=== PATIENT | male | born 1985 | race Caucasian/White ===

== ENCOUNTER 2021-10-15 21:12 | Inpatient (IN) | payer MEDICAID, SELFPAY ==
--- NOTE | ~2021-10-15 | XR_ITS ---
EXAMINATION: XR CHEST CLINICAL INFORMATION: Fever COMPARISON: 01/30/2018 TECHNIQUE: Frontal view of the chest was obtained. FINDINGS: Lung volumes are symmetric. No definite consolidation is seen. There is suggestion of mildly thick-walled central airways. No evidence of pneumothorax, pleural effusion, or pulmonary edema. The cardiomediastinal contour is unremarkable. No acute osseous findings are seen. XR/XR chest 1V IMPRESSION: Suggestion of mildly thick-walled central airways which may reflect bronchitis. No definite consolidation.
--- NOTE | ~2021-10-15 | CT_ITS ---
EXAMINATION: CT ABDOMEN AND PELVIS WITH CONTRAST CLINICAL INFORMATION: Diffuse abdominal pain COMPARISON: 01/30/2018 TECHNIQUE: Multidetector volumetric images were obtained from the superior aspect of the liver through the pubic symphysis following administration 85 mL of Omnipaque 350 intravenous contrast. Sagittal and coronal reformatted images were obtained on the technologist's workstation. Oral contrast: No This CT examination was performed using dose optimization techniques as appropriate, variously including the following: *Automated exposure control *Adjustment of mA and/or kV according to patient size (this includes techniques or standardized protocols for targeted exams where dose is matched to indication/reason for exam; i.e. extremities or head) *Use of iterative reconstruction technique DLP: 569 mGy-cm FINDINGS: LUNG BASES: The visualized lung bases are unremarkable. LIVER, GALLBLADDER, AND BILIARY TREE: The liver is normal in size, shape, and attenuation. There is suggestion of mild focal steatosis near the gallbladder fossa. No biliary ductal dilatation is present. The gallbladder is unremarkable with no evidence of radiopaque gallstones, gallbladder wall thickening, or obvious pericholecystic inflammatory changes. PANCREAS: There is moderate stranding near the distal pancreas along with a small amount of fluid, most suspicious for pancreatitis. No discrete fluid collection is seen. No definite parenchymal necrosis. SPLEEN: Unremarkable. ADRENAL GLANDS: Unremarkable. KIDNEYS AND URETERS: The right kidney may be severely atrophic or absent. No hydronephrosis or obstructing calculus of the left kidney/ureter. BLADDER: There is diffuse mural prominence which may be due to underdistention. GASTROINTESTINAL TRACT: The small and large bowel are unremarkable. The appendix is unremarkable. No free fluid or free air is seen. ABDOMINAL WALL: No significant hernia is appreciated. LYMPH NODES: Normal. VASCULAR: Unremarkable. PELVIC VISCERA: Unremarkable. Trace free fluid noted in the pelvis. OSSEOUS STRUCTURES: There are mild degenerative changes of the lower thoracic spine. CT/CT abdomen pelvis w con IMPRESSION: Moderate stranding adjacent to the distal pancreas consistent with pancreatitis.
[2021-10-15 22:49] VITALS: BP 151/96; PULSE 110; RESP 18; TEMP 37.1; O2SAT 95; BMI 28.3
--- NOTE | 2021-10-15 23:01 | ED_ITS ---
HPI - Abdominal Pain General Chief Complaint: Abdominal Pain Stated Complaint: Abdominal pain Time Seen by Provider: 10/15/21 22:34 Source: patient Mode of arrival: ambulatory Limitations: no limitations History of Present Illness HPI narrative: Patient comes emergency room complaining of diffuse abdominal pain since 1 in the morning, close to 22 hours now. Patient states it started hurting in the left lower quadrant but by the morning it became diffuse abdominal pain. Patient denies nausea vomiting, no diarrhea, no fever chills, states that he has occasional dysuria, no hematuria. Related Data Home Medications Medication Instructions Recorded Confirmed No Known Home Meds 10/16/21 10/16/21 Allergies Allergy/AdvReac Type Severity Reaction Status Date / Time lisinopril Allergy Unknown Hyperkalemi Verified 04/09/20 00:00 a Review of Systems Review of Systems Constitutional : No Weight loss, No Fever, No Chills, No Night Sweats, No Fatigue, No Malaise ENT/Mouth : No Hearing loss, No Ear Pain, No Nasal Congestion, No Sinus Pain, No Hoarseness, No sore throat, No Rhinorrhea, No Swallowing Difficulty Eyes: No Eye Pain, No Swelling, No Redness, No Foreign Body, No Discharge, No Vision Changes Cardiovascular : No Chest Pain, No SOB, No Dyspnea on Exertion, No Orthopnea, No Edema, No Palpitations Respiratory : No Cough, No Sputum, No Wheezing, No Smoke Exposure, No Dyspnea Gastrointestinal : No Nausea, No Vomiting, No Diarrhea, No Constipation, complaining of diffuse abdominal pain, started in the left lower quadrant. No Hematochezia, No Melena Genitourinary : no irregular bleeding, No Dysuria, No Urinary Frequency, No Hematuria, No Urinary Incontinence, No Urgency, No Flank Pain, No Urinary Flow Changes, No Hesitancy Musculoskeletal : No joint pain, No Myalgias, No Joint Swelling Skin : No Skin Lesions, No rash Neuro : No Weakness, No Numbness, No Paresthesias, No Loss of Consciousness, No Dizziness, No Headache Psych : No Anxiety/Panic, No Depression, No SI/HI/AH/VH, No Social Issues, Heme/Lymph: No Bruising, No Bleeding,No Lymphadenopathy Endocrine : No Polyuria, No Polydipsia, No Temperature Intolerance Physical Exam Vital Signs: Vital Signs: Last Vital Signs Temp 100.6 F H 10/16/21 00:38 Pulse 101 H 10/16/21 00:38 Resp 16 10/16/21 02:19 BP 148/102 H 10/16/21 00:38 Pulse Ox 96 10/16/21 00:38 Body Mass Index 28.3 Const: Other: Appearance: Alert. Oriented X3. No acute distress. Eyes: Pupils equal, round and reactive to light. ENT: Pharynx normal. Neck: Normal inspection. Neck supple. No lymph nodes noted. No crepitus CVS: Normal heart rate and rhythm. Pulses normal. Normal S1 and S2 Respiratory: No respiratory distress. Breath sounds normal. No Wheezing. No rales Abdomen: Soft , mild tenderness to palpation diffusely. No guarding, no rebound No rigidity. No distention. Skin: Skin warm and dry. Normal skin color. Normal skin turgor. Extremities: No lower extremity edema. No lower extremity edema. No Lacerations. No Rash Neuro: Oriented X 3. No motor deficit. No sensory deficit. Moving all extermities. No slurred speech. Course Course Course Narrative: Denies heavy alcohol drinking, triglyceride levels pending. Patient's pain likely secondary to pancreatitis. Obtain nonfasting triglycerides. Triglyceride levels are above 3000. Patient will need to be started on an insulin drip and 5 % dextrose and lactated Ringer's IV fluids MDM - Abdominal Pain Lab Data Result diagrams: 10/15/21 23:19 10/15/21 23:19 Labs: Lab Results 10/15/21 10/15/21 10/16/21 Range/Units 23:19 23:19 01:03 WBC 16.5 H (4.8-10.8) X10*3/uL RBC 5.87 H (4.60-5.80) X10*6/uL Hgb 18.6 H (14.0-18.0) g/dl Hct 51.5 (42.0-52.0) % MCV 87.7 (80.0-98.0) fL MCH 31.7 (27.0-33.0) pg MCHC 36.1 H (31.0-36.0) g/dl RDW 11.5 (11.0-16.0) % Plt Count 164 (160-400) X10*3/uL MPV 10.5 (9.4-12.4) fL Immature Gran % (Auto) 0.5 H (0.0-0.4) % Neut % (Auto) 79.6 H (45-73) % Lymph % (Auto) 11.2 L (20-40) % [place] % (Auto) 7.8 (2-11) % Eos % (Auto) 0.7 (0-4) % Baso % (Auto) 0.2 (0-2) % Lymph # (Auto) 1.8 (1.2-4.9) X10*3/uL [place] # (Auto) 1.3 H (0.1-1.2) X10*3/uL Eos # (Auto) 0.1 (0.0-0.4) X10*3/uL Baso # (Auto) 0.0 (0.0-0.2) X10*3/uL Abs Immat Gran (auto) 0.08 H (0.00-0.03) X10*3/uL Absolute Neuts (auto) 13.1 H (2.0-8.3) x10*3/uL Absolute Nucleated RBC 0.000 (0.0-0.012) X10*3/uL Nucleated RBC % (auto) 0.0 (0.0-0.2) /100WBC Sodium 132 L (135-145) mmol/L Potassium 4.1 (3.3-5.1) mmol/L Chloride 95 L (96-108) mmol/L Carbon Dioxide 22 (22-29) mmol/L Anion Gap 19 (12-20) BUN 15 (9-16) mg/dL Creatinine 1.88 H (0.5-1.4) mg/dL Estim Creat Clear Calc 55.6 Estimated GFR 41 Random Glucose 279 H (60-115) mg/dL Calcium 9.3 (8.4-10.2) mg/dL Total Bilirubin 0.8 (0.0-1.0) mg/dL Direct Bilirubin 0.2 (0.0-0.5) mg/dL AST 15 (5-37) U/L ALT 22 (0-40) U/L Alkaline Phosphatase 107 (39-117) U/L Total Protein 8.3 H (6.5-8.0) g/dL Albumin 3.9 (3.5-5.0) g/dL Triglycerides 3217 mg/dL Lipase 82 H (8-78) U/L Urine Color Urine Appearance Urine pH (5.0-8.0) Ur Specific [place] (1.005-1.025) Urine Protein (NEG-TRACE) MG/DL Urine Glucose (UA) (NEG) MG/DL Urine Ketones (NEG) MG/DL Urine Blood (NEG) Urine Nitrite (NEG) Ur Leukocyte Esterase (NEG) Urine RBC (0) /HPF Urine WBC (0-4) /HPF Ur Squamous Epith Cells /LPF Urine Bacteria /LPF Hyaline Casts /LPF Granular Casts /LPF Urine Mucus /LPF COVID-19 (APRYL) Negative (Negative) COVID-19 Clin Com See Note 10/16/21 Range/Units 01:03 WBC (4.8-10.8) X10*3/uL RBC (4.60-5.80) X10*6/uL Hgb (14.0-18.0) g/dl Hct (42.0-52.0) % MCV (80.0-98.0) fL MCH (27.0-33.0) pg MCHC (31.0-36.0) g/dl RDW (11.0-16.0) % Plt Count (160-400) X10*3/uL MPV (9.4-12.4) fL Immature Gran % (Auto) (0.0-0.4) % Neut % (Auto) (45-73) % Lymph % (Auto) (20-40) % [place] % (Auto) (2-11) % Eos % (Auto) (0-4) % Baso % (Auto) (0-2) % Lymph # (Auto) (1.2-4.9) X10*3/uL [place] # (Auto) (0.1-1.2) X10*3/uL Eos # (Auto) (0.0-0.4) X10*3/uL Baso # (Auto) (0.0-0.2) X10*3/uL Abs Immat Gran (auto) (0.00-0.03) X10*3/uL Absolute Neuts (auto) (2.0-8.3) x10*3/uL Absolute Nucleated RBC (0.0-0.012) X10*3/uL Nucleated RBC % (auto) (0.0-0.2) /100WBC Sodium (135-145) mmol/L Potassium (3.3-5.1) mmol/L Chloride (96-108) mmol/L Carbon Dioxide (22-29) mmol/L Anion Gap (12-20) BUN (9-16) mg/dL Creatinine (0.5-1.4) mg/dL Estim Creat Clear Calc Estimated GFR Random Glucose (60-115) mg/dL Calcium (8.4-10.2) mg/dL Total Bilirubin (0.0-1.0) mg/dL Direct Bilirubin (0.0-0.5) mg/dL AST (5-37) U/L ALT (0-40) U/L Alkaline Phosphatase (39-117) U/L Total Protein (6.5-8.0) g/dL Albumin (3.5-5.0) g/dL Triglycerides mg/dL Lipase (8-78) U/L Urine Color YELLOW Urine Appearance CLEAR Urine pH 6.0 (5.0-8.0) Ur Specific [place] 1.020 (1.005-1.025) Urine Protein 3+ H (NEG-TRACE) MG/DL Urine Glucose (UA) >=1000 H (NEG) MG/DL Urine Ketones 5 (NEG) MG/DL Urine Blood 1+ H (NEG) Urine Nitrite NEG (NEG) Ur Leukocyte Esterase NEG (NEG) Urine RBC 1-4 (0) /HPF Urine WBC 1-4 (0-4) /HPF Ur Squamous Epith Cells TRACE /LPF Urine Bacteria NONE /LPF Hyaline Casts 0-2 /LPF Granular Casts 0-2 /LPF Urine Mucus 1+ /LPF COVID-19 (APRYL) (Negative) COVID-19 Clin Com Imaging Data CT scan - abdomen: Radiologist's impression: FINDINGS: LUNG BASES: The visualized lung bases are unremarkable.? LIVER, GALLBLADDER, AND BILIARY TREE: The liver is normal in size, shape, and attenuation. There is suggestion of mild focal steatosis near the gallbladder fossa. No biliary ductal dilatation is present. The gallbladder is unremarkable with no evidence of radiopaque gallstones, gallbladder wall thickening, or obvious pericholecystic inflammatory changes.? PANCREAS: There is moderate stranding near the distal pancreas along with a small amount of fluid, most suspicious for pancreatitis. No discrete fluid collection is seen. No definite parenchymal necrosis.? SPLEEN: Unremarkable.? ADRENAL GLANDS: Unremarkable.? KIDNEYS AND URETERS: The right kidney may be severely atrophic or absent. No hydronephrosis or obstructing calculus of the left kidney/ureter.? BLADDER: There is diffuse mural prominence which may be due to underdistention.? GASTROINTESTINAL TRACT: The small and large bowel are unremarkable. The appendix is unremarkable. No free fluid or free air is seen. ABDOMINAL WALL: No significant hernia is appreciated.? LYMPH NODES: Normal. VASCULAR: Unremarkable. PELVIC VISCERA: Unremarkable. Trace free fluid noted in the pelvis. OSSEOUS STRUCTURES: There are mild degenerative changes of the lower thoracic spine.? CT/CT abdomen pelvis w con IMPRESSION: Moderate stranding adjacent to the distal pancreas consistent with pancreatitis. Critical Care Time Critical Care Time Critical Care Time: Yes Total Critical Care Time: 45 Attestation: 45 minutes were spent in direct patient care and stabilization. Discharge Plan Discharge Clinical Impression: Pancreatitis Patient Disposition: Admitted As Inpatient [facility] Past Medical History Medical History Diabetes Social History Social History Advance Directives: No Advance Directives Information Provided: No
[2021-10-15 23:23] LABS: MANUAL DIFF FLAG NO
[2021-10-15 23:25] LABS: Basophils Percent Auto 0.2 % (0-2); Eosinophils Absolute Auto 0.1 X10*3/uL (0.0-0.4); Eosinophils Percent Auto 0.7 % (0-4); Hematocrit 51.5 % (42.0-52.0); Hemoglobin 18.6 g/dl (14.0-18.0); Imm Gran Abs Auto 0.08 X10*3/uL (0.00-0.03); Imm Gran Pct Auto 0.5 % (0.0-0.4); Lymphocytes Absolute Auto 1.8 X10*3/uL (1.2-4.9); Lymphocytes Percent Auto 11.2 % (20-40); Mean Corpuscular HGB Conc 36.1 g/dl (31.0-36.0); Mean Corpuscular Hemoglobin 31.7 pg (27.0-33.0); Mean Corpuscular Volume 87.7 fL (80.0-98.0); Mean Platelet Volume 10.5 fL (9.4-12.4); Monocytes Absolute Auto 1.3 X10*3/uL (0.1-1.2); Monocytes Percent Auto 7.8 % (2-11); Neutrophils Absolute Auto 13.1 x10*3/uL (2.0-8.3); Neutrophils Percent Auto 79.6 % (45-73); Platelet Count 164 X10*3/uL (160-400); Red Blood Count 5.87 X10*6/uL (4.60-5.80); Red Cell Distribution Width 11.5 % (11.0-16.0); White Blood Count 16.5 X10*3/uL (4.8-10.8)
[2021-10-15 23:51] LABS: Lipase 82 U/L (8-78)
[2021-10-16] VITALS (23 sets, daily range): BP systolic 117–162; BP diastolic 70–115; PULSE 83–113; RESP 15–23; TEMP 37.1–38.7; O2SAT 93–98; BMI 27.8
[2021-10-16] MEDS: 0.9 % Sodium Chloride 1,000 ML 999 ML IVCONT ×2 (00:18→00:59)
[2021-10-16 00:32] LABS: Alanine Aminotransferase 22 U/L (0-40); Albumin Level 3.9 g/dL (3.5-5.0); Alkaline Phosphatase 107 U/L (39-117); Anion Gap 19 (12-20); Aspartate Amino Transferase 15 U/L (5-37); Bilirubin Direct 0.2 mg/dL (0.0-0.5); Bilirubin Total 0.8 mg/dL (0.0-1.0); Blood Urea Nitrogen 15 mg/dL (9-16); Calcium 9.3 mg/dL (8.4-10.2); Carbon Dioxide 22 mmol/L (22-29); Chloride 95 mmol/L (96-108); Creatinine Clr Calc Pharmacy 55.6; Estimated Glomerular Filt Rate 41; Glucose Random 279 mg/dL (60-115); Potassium 4.1 mmol/L (3.3-5.1); Sodium 132 mmol/L (135-145); Total Protein 8.3 g/dL (6.5-8.0)
[2021-10-16] MEDS: iohexoL 300 MG/ML 100 ML INFUS..BTL 85 ML IV (00:49)
[2021-10-16] MEDS: Acetaminophen 325 MG TABLET 650 MG PO (00:59)
[2021-10-16 01:24] LABS: Appearance Urine CLEAR; COVID-19 Test Negative (Negative); Color Urine YELLOW; Glucose Urine UA >=1000 MG/DL (NEG); IDNOW Serial# 9DD0AD1C; Leukocyte Esterase Urine NEG (NEG); Nitrite Urine NEG (NEG); UACC Culture Trigger NO; Urine Blood 1+ (NEG); Urine Ketones 5 MG/DL (NEG); Urine Protein 3+ MG/DL (NEG-TRACE)
[2021-10-16 02:00] LABS: Granular Casts Urine 0-2 /LPF; Hyaline Casts Urine 0-2 /LPF; Mucus Urine 1+ /LPF; Squamous Epithelial Cell Urine TRACE /LPF
[2021-10-16 02:10] LABS: Triglycerides 3217 mg/dL
--- NOTE | 2021-10-16 02:10 | PC.NURSE ---
DAVIS TALKING TO THIS RN ON PATIENTS PHONE WANTING TO BE CALLED WITH UPDATES WHEN POSSIBLE, EXPLAINING PATIENT ADMISSION PLAN FOR THIS EVENING. THE [facility] NUMBER IS [phone]
[2021-10-16] MEDS: Morphine Sulfate 4 MG/ML CARTRIDGE IVPUSH (02:19)
[2021-10-16] MEDS: Insulin Regular/NS 100 UNIT/100 ML PLAST..BAG IVCONT (02:48)
[2021-10-16] MEDS: Dextrose 5 % and Lactated Ring 1,000 ML 200 ML IVCONT (02:49)
[2021-10-16 02:53] LABS: Glucose, Whole Blood 269 mg/dL (60-115)
--- NOTE | 2021-10-16 03:21 | PC.NURSE ---
patient resting comfortably, seen by pantograph machine set up operator provider plan of care for admission to icu. patient is agreeable to plan of care. no distress at this time. point of care was 269 with the start of the insulin drip. patient offering no complaints. skin is p,d,w.
--- NOTE | 2021-10-16 03:29 | PM.CCHP ---
History of Present Illness Date of Service: 10/16/21 Attending physician on admission: Blas Post Chief Complaint: Abdominal pain This is a 36 year male with a past medical history hypertension, diabetes mellitus, solitary kidney, pancreatitis and past alcohol abuse who presented to the emergency room with complaints of diffuse abdominal pain.? Patient reported pain x1 day, that worsened through the day. ?I spoke with patient's niece, who reports patient currently on no medication, has been living with her for 1.5 years in which he has not use alcohol. In the ED, vital signs stable.? Laboratory data significant for CBC 16.5, serum sodium 132, creatinine 1.8, triglycerides 3217, and lipase [address] of abdomen:? Moderate stranding adjacent to the distal pancreas consistent with pancreatitis. He received 2 L of normal saline, and started on IV insulin drip Patient will be admitted to the ICU for management of hypertriglyceridemia induced pancreatitis requiring insulin drip Review of Systems Review of Systems: Constitutional: No fever, chills, fatigue, weakness Eyes: No visual loss, blurred vision, double vision or yellow sclera ENT: No congestion, runny nose and sore throat. Respiratory: No shortness of breath , cough. No sputum production. Cardiovascular: No chest pain, chest pressure or chest discomfort. No palpitations or pedal edema. Gastrointestinal: + admonial pain, . No nausea, vomiting. No diarrhea. Genitourinary: No burning micturition. No urinary frequency or incontinence. Neurologic: No headache, dizziness, syncope, unilateral weakness, ataxia, numbness or tingling in the extremities. No change in bowel or bladder control. Musculoskeletal: No muscle pain, back pain, joint pain or stiffness. Hematologic/Lymphatics: No bleeding or bruising. No painful lymph nodes. Skin: No rash or itching. Endocrine: No cold or heat intolerance. No polyuria or polydipsia. Psychiatric: No depression or anxiety. [facility] Past Medical History Medical History (Updated 10/16/21 @ 03:43 by Julienne Koenig NP) Diabetes Hypertension Pancreatitis Solitary kidney, congenital Social History Social History Advance Directives: No Advance Directives Information Provided: No Meds Allergies Allergy/AdvReac Type Severity Reaction Status Date / Time lisinopril Allergy Unknown Hyperkalemi Verified 04/09/20 00:00 a Active Medications: Current Medications Heparin Sodium (Porcine) (Heparin Sodium,Porcine 5,000 Unit/Ml Vial) 5,000 unit SUBCUT Q8H [facility] Insulin Human Regular (Myxredlin) 100 unit in 100 mls @ 0 mls/hr IVCONT .Q0M [facility]; Protocol Last Admin: 10/16/21 02:48 Dose: 2 unit/hr, 2 mls/hr Documented by: Dextrose/Lactated Ringer's ([email or web address]) 1,000 mls @ 200 mls/hr IVCONT .Q5H [facility] Last Admin: 10/16/21 02:49 Dose: 200 mls/hr Documented by: Home Medications Medication Instructions Recorded Confirmed Last Taken Type No Known Home Meds 10/16/21 10/16/21 Unknown History Physical Exam Vital Signs: Vital Signs: Last Vital Signs Temp 99.0 F 10/16/21 02:54 Pulse 100 10/16/21 02:54 Resp 16 10/16/21 02:54 BP 130/88 10/16/21 02:54 Pulse Ox 98 10/16/21 02:54 Body Mass Index 28.3 Constitutional: Alert, in no distress. Mental Status: Oriented to person, place and time. Head: Normocephalic. Eyes: Pupils are equal, round and reactive to light. Extraocular muscles intact. Ear, Nose and Throat: Oropharynx clear, mucous membranes moist. Ears and nose without masses, lesions or deformities. Trachea midline. Neck: Supple, Full range of motion. Respiratory: Lungs CTA.? No wheezing. Cardiovascular: S1 S2 regular. No murmurs, rubs or gallops. Gastrointestinal: Abdomen soft, tender right upper quadrant, non-distended. Normal bowel sounds. No pulsatile mass. No hepatosplenomegaly. Genitourinary: No costovertebral angle tenderness. Neurologic: Cranial nerves II-XII grossly intact. No focal neurological deficits. Psychiatric: Normal mood and affect Results Labs CBC and Chem 7: 10/15/21 23:19 10/15/21 23:19 Labs: Laboratory Results - last 24 hr 10/15/21 10/15/21 10/16/21 23:19 23:19 01:03 MCV 87.7 MCH 31.7 MCHC 36.1 H RDW 11.5 Plt Count 164 MPV 10.5 Immature Gran % (Auto) 0.5 H Neut % (Auto) 79.6 H Lymph % (Auto) 11.2 L [place] % (Auto) 7.8 Eos % (Auto) 0.7 Baso % (Auto) 0.2 Lymph # (Auto) 1.8 [place] # (Auto) 1.3 H Eos # (Auto) 0.1 Baso # (Auto) 0.0 Abs Immat Gran (auto) 0.08 H Absolute Neuts (auto) 13.1 H Absolute Nucleated RBC 0.000 Nucleated RBC % (auto) 0.0 Anion Gap 19 Estim Creat Clear Calc 55.6 Estimated GFR 41 POC Glucose Random Glucose 279 H Calcium 9.3 Total Bilirubin 0.8 Direct Bilirubin 0.2 AST 15 ALT 22 Alkaline Phosphatase 107 Total Protein 8.3 H Albumin 3.9 Triglycerides 3217 Lipase 82 H Urine Color Urine Appearance Urine pH Ur Specific [place] Urine Protein Urine Glucose (UA) Urine Ketones Urine Blood Urine Nitrite Ur Leukocyte Esterase Urine RBC Urine WBC Ur Squamous Epith Cells Urine Bacteria Hyaline Casts Granular Casts Urine Mucus COVID-19 (APRYL) Negative COVID-19 Clin Com See Note 10/16/21 10/16/21 01:03 02:49 MCV MCH MCHC RDW Plt Count MPV Immature Gran % (Auto) Neut % (Auto) Lymph % (Auto) [place] % (Auto) Eos % (Auto) Baso % (Auto) Lymph # (Auto) [place] # (Auto) Eos # (Auto) Baso # (Auto) Abs Immat Gran (auto) Absolute Neuts (auto) Absolute Nucleated RBC Nucleated RBC % (auto) Anion Gap Estim Creat Clear Calc Estimated GFR POC Glucose 269 H Random Glucose Calcium Total Bilirubin Direct Bilirubin AST ALT Alkaline Phosphatase Total Protein Albumin Triglycerides Lipase Urine Color YELLOW Urine Appearance CLEAR Urine pH 6.0 Ur Specific [place] 1.020 Urine Protein 3+ H Urine Glucose (UA) >=1000 H Urine Ketones 5 Urine Blood 1+ H Urine Nitrite NEG Ur Leukocyte Esterase NEG Urine RBC 1-4 Urine WBC 1-4 Ur Squamous Epith Cells TRACE Urine Bacteria NONE Hyaline Casts 0-2 Granular Casts 0-2 Urine Mucus 1+ COVID-19 (APRYL) COVID-19 Clin Com Imaging Radiologist's Impressions: Impressions Abdomen/Pelvis CT 10/16/21 00:00 IMPRESSION: Moderate stranding adjacent to the distal pancreas consistent with pancreatitis. Chest X-Ray 10/16/21 02:22 IMPRESSION: Suggestion of mildly thick-walled central airways which may reflect bronchitis. No definite consolidation. Assessment and Plan (1) Pancreatitis: Qualifiers: Acute pancreatitis complication: unspecified Chronicity: acute Pancreatitis type: unspecified pancreatitis type Qualified Code(s): K85.90 - Acute pancreatitis without necrosis or infection, unspecified Status: Acute (2) Hypertriglyceridemia: Status: Acute (3) MINOO (acute kidney injury): Status: Acute (4) Solitary kidney, congenital: Status: Inactive 36 year old male with past medical history of hypertension, diabetes mellitus, solitary ?previous pancreatitis who has not follow with a primary care now presents with hypertriglyceridemia induced pancreatitis. ? Neuro: ? No acute issues Cardiac:??No acute issues Pulmonary: ? No acute issues Renal:? MINOO- ? Has hx of solitary kidney, MINOO most likely related to hypoperfusion, nonoliguric.? Continue? aggressive IV fluid? replacement.? Continue to check renal induces and urine output GI:?? Hypertriglyceridemia ?acute pancreatitis: ?CT is consistent with pancreatitis, triglycerides elevated to 3217. ?He is currently on no medication. ?Received appropriate fluid resuscitation in the emergency room and started on insulin drip. ?Will continue insulin drip until triglycerides in safe range. Zach send UTOX and ETOH level Endo:??? No acute issues ID::? leukocytosis, from acute pancreatitis.? Not infectious in nature. ?Will continue to trend CBC Heme/Onc:? No acute issues. Psych:? No acute issues. Miscellaneous:? No acute issues. Prophylaxis:? heparin subQ Diet: ? NPO?? Critical care time: 60 x minutes of critical care time.? CODE: FULL Case disccused with attending Dr Post ? Critical Care Time Critical Care Time (minutes): 60
[2021-10-16] MEDS: Heparin Sodium,Porcine 5,000 UNIT/ML VIAL 5000 UNIT SUBCUT ×3 (03:56→18:04)
[2021-10-16 04:18] LABS: Amphetamine Screen Urine Not Detected (Not Detect); Barbiturates, Urine Not Detected (Not Detect); Benzodiazepines Screen Urine Not Detected (Not Detect); Cannabinoid Screen Urine POSITIVE (Not Detect); Cocaine Screen Urine Not Detected (Not Detect); Fentanyl, urine Not Detected (Not Detect); Opiate Screen Urine Not Detected (Not Detect); Phencyclidine Screen Urine Not Detected (Not Detect)
[2021-10-16 04:40] LABS: Glucose, Whole Blood 285 mg/dL (60-115)
[2021-10-16 05:45] LABS: Basophils Percent Auto 0.2 % (0-2); MANUAL DIFF FLAG SCAN; Mean Corpuscular Hemoglobin 30.6 pg (27.0-33.0); PLT CLUMP 1; Red Cell Distribution Width 11.5 % (11.0-16.0); SCAN SMEAR FLAG 1
[2021-10-16 05:47] LABS: Eosinophils Absolute Auto 0.1 X10*3/uL (0.0-0.4); Eosinophils Percent Auto 0.6 % (0-4); Hematocrit 46.3 % (42.0-52.0); Hemoglobin 16.1 g/dl (14.0-18.0); Imm Gran Abs Auto 0.05 X10*3/uL (0.00-0.03); Imm Gran Pct Auto 0.4 % (0.0-0.4); Lymphocytes Absolute Auto 2.3 X10*3/uL (1.2-4.9); Lymphocytes Percent Auto 18.4 % (20-40); Mean Corpuscular HGB Conc 34.8 g/dl (31.0-36.0); Mean Corpuscular Volume 87.9 fL (80.0-98.0); Mean Platelet Volume 10.7 fL (9.4-12.4); Neutrophils Absolute Auto 9.2 x10*3/uL (2.0-8.3); Neutrophils Percent Auto 72.4 % (45-73); Platelet Count 122 X10*3/uL (160-400); Red Blood Count 5.27 X10*6/uL (4.60-5.80); White Blood Count 12.7 X10*3/uL (4.8-10.8)
[2021-10-16 06:08] LABS: Alanine Aminotransferase 15 U/L (0-40); Albumin Level 3.1 g/dL (3.5-5.0); Alkaline Phosphatase 81 U/L (39-117); Anion Gap 12 (12-20); Aspartate Amino Transferase 11 U/L (5-37); Bilirubin Total 0.9 mg/dL (0.0-1.0); Blood Urea Nitrogen 12 mg/dL (9-16); Calcium 8.1 mg/dL (8.4-10.2); Carbon Dioxide 23 mmol/L (22-29); Chloride 102 mmol/L (96-108); Creatinine Clr Calc Pharmacy 63.2; Estimated Glomerular Filt Rate 48; Glucose Random 294 mg/dL (60-115); Magnesium 1.7 mg/dL (1.6-2.6); Phosphorus 1.8 mg/dL (2.7-4.5); Potassium 4.4 mmol/L (3.3-5.1); Sodium 133 mmol/L (135-145); Total Protein 6.7 g/dL (6.5-8.0)
[2021-10-16 06:19] LABS: Glucose, Whole Blood 279 mg/dL (60-115)
--- NOTE | 2021-10-16 06:25 | PC.NURSE ---
admit to 259-1 from er dept...awake..alert..oriented x3..speech clear..waters...respirations easy...d5lr 200 cc/hr & insulin drip 2 units/hr...insulin continuous rate per icu casting cleaner..to check poc glucose q2h...d5lr decreased to 150 cc/hr 06:15 per icu casting cleaner...patient restful...dozing w/o difficulty..no complaints
[2021-10-16 06:27] LABS: Triglycerides 1820 mg/dL
[2021-10-16 06:31] LABS: SLIDE REVIEW VERIFIED
[2021-10-16 06:49] LABS: Ethanol < 10 mg/dL
[2021-10-16 08:05] LABS: Glucose, Whole Blood 250 mg/dL (60-115)
[2021-10-16] MEDS: Dextrose 5 % and Lactated Ring 1,000 ML 150 ML IVCONT ×3 (08:27→22:20)
[2021-10-16] MEDS: Sodium,Potassium Phosphates POWD.PACK 2 PACKET PO (09:02)
[2021-10-16 10:05] LABS: Glucose, Whole Blood 255 mg/dL (60-115)
[2021-10-16 12:15] LABS: Glucose, Whole Blood 255 mg/dL (60-115)
[2021-10-16 12:44] LABS: Anion Gap 12 (12-20); Blood Urea Nitrogen 10 mg/dL (9-16); Calcium 8.3 mg/dL (8.4-10.2); Carbon Dioxide 25 mmol/L (22-29); Chloride 101 mmol/L (96-108); Creatinine Clr Calc Pharmacy 70.6; Estimated Glomerular Filt Rate 54; Glucose Random 253 mg/dL (60-115); Lipase 73 U/L (8-78); Potassium 3.5 mmol/L (3.3-5.1); Sodium 134 mmol/L (135-145); Triglycerides 1039 mg/dL
[2021-10-16 14:09] LABS: Glucose, Whole Blood 245 mg/dL (60-115)
--- NOTE | 2021-10-16 16:08 | MHC.CM.PN ---
Male 36 DX DKA He lives with his neice. He states that he is independent with all functional mobility. DP home with family assist and transport.
[2021-10-16 16:19] LABS: Glucose, Whole Blood 262 mg/dL (60-115)
[2021-10-16] MEDS: gemfibroziL 600 MG TABLET PO (16:28)
[2021-10-16 18:37] LABS: Glucose, Whole Blood 247 mg/dL (60-115)
[2021-10-16 20:11] LABS: Glucose, Whole Blood 242 mg/dL (60-115)
[2021-10-16] MEDS: Acetaminophen 325 MG TABLET 975 MG PO (20:23)
[2021-10-16 22:03] LABS: Glucose, Whole Blood 179 mg/dL (60-115)
[2021-10-16 23:54] LABS: Glucose, Whole Blood 175 mg/dL (60-115)
[2021-10-17] VITALS (20 sets, daily range): BP systolic 111–144; BP diastolic 62–100; PULSE 87–121; RESP 6–35; TEMP 36.6–37.6; O2SAT 91–98; BMI 28.2
--- NOTE | 2021-10-17 01:27 | PC.NURSE ---
Addendum entered by Homero Sinha RN 10/17/21 01:54: POCT was 162 at 0200; discussed with PA and lowered insulin gtt to 2 units/hour per PA. Addendum entered by Homero Sinha RN 10/17/21 01:41: Phosphorus had been 1.8 on 10/16/21 in the AM, and patient has had 2 packets of phos-nak and started full liquid diet. Discussed with PA and new order to recheck in the AM Addendum entered by Homero Sinha RN 10/17/21 01:36: renal indices improving and CMP is ordered for AM. Patient voiding in urinal, so far 725 ccs out this shift. Denies dysuria Original Note: Assumed care at 19:00 from Yvonne Estrada. Patietn alert and oriented x4, Slovak and Kazakh speaking. Described pain in his epigastric area 7/10 around upper bilateral abdomen, discussed with PA as no pain meds ordered, and one time order for 975 mg acetaminophen ordered and administered with good effect. Patient reports 5/10 pain and tolerating on reassesment. Patient continues on insulin gtt with respect to hypertriglyceridemia, which is being rechecked in the morning and is trended down. Patient is on 3 units/hour iv insulin, and this is not being titrated, but the POCT glucose is being checked Q2 hours, with value lowering slightly, 242 down to 175. Patient with hyponatremia continuing, improving, and AM CMP is ordered for this morning. Patient on room air breathing easily, sinus rhythm on monitor. Had fever Tmax 101.7, in the evening, and afebrile currently status post tylenol administration, and PA aware. WBC was 12.7 yestday, trended down and CBC ordered for this morning. Patient with Full liquid diet and tolerating. Has had diarrhea x1 this evening. Voiding in urinal, 725 ccs out. Skin intact. Patient pleasant and rings responsibly.
[2021-10-17 01:51] LABS: Glucose, Whole Blood 162 mg/dL (60-115)
[2021-10-17] MEDS: Heparin Sodium,Porcine 5,000 UNIT/ML VIAL 5000 UNIT SUBCUT (03:53)
[2021-10-17 03:55] LABS: Glucose, Whole Blood 179 mg/dL (60-115)
[2021-10-17] MEDS: Acetaminophen 325 MG TABLET 650 MG PO (04:56)
[2021-10-17] MEDS: Dextrose 5 % and Lactated Ring 1,000 ML 150 ML IVCONT (05:04)
[2021-10-17 05:40] LABS: MANUAL DIFF FLAG NO
[2021-10-17 05:46] LABS: Basophils Percent Auto 0.1 % (0-2); Eosinophils Absolute Auto 0.2 X10*3/uL (0.0-0.4); Eosinophils Percent Auto 1.2 % (0-4); Hematocrit 41.6 % (42.0-52.0); Hemoglobin 14.5 g/dl (14.0-18.0); Imm Gran Abs Auto 0.09 X10*3/uL (0.00-0.03); Imm Gran Pct Auto 0.6 % (0.0-0.4); Lymphocytes Absolute Auto 2.7 X10*3/uL (1.2-4.9); Lymphocytes Percent Auto 19.1 % (20-40); Mean Corpuscular HGB Conc 34.9 g/dl (31.0-36.0); Mean Corpuscular Hemoglobin 30.3 pg (27.0-33.0); Mean Platelet Volume 10.3 fL (9.4-12.4); Monocytes Absolute Auto 1.4 X10*3/uL (0.1-1.2); Monocytes Percent Auto 10.1 % (2-11); Neutrophils Absolute Auto 9.8 x10*3/uL (2.0-8.3); Neutrophils Percent Auto 68.9 % (45-73); Platelet Count 118 X10*3/uL (160-400); Red Blood Count 4.78 X10*6/uL (4.60-5.80); Red Cell Distribution Width 11.7 % (11.0-16.0); White Blood Count 14.2 X10*3/uL (4.8-10.8)
[2021-10-17 05:55] LABS: Triglycerides 439 mg/dL
[2021-10-17 06:01] LABS: Glucose, Whole Blood 208 mg/dL (60-115)
[2021-10-17 06:01] LABS: Alanine Aminotransferase 13 U/L (0-40); Albumin Level 3.1 g/dL (3.5-5.0); Alkaline Phosphatase 72 U/L (39-117); Anion Gap 11 (12-20); Aspartate Amino Transferase 8 U/L (5-37); Bilirubin Total 1.8 mg/dL (0.0-1.0); Blood Urea Nitrogen 7 mg/dL (9-16); Calcium 8.2 mg/dL (8.4-10.2); Carbon Dioxide 26 mmol/L (22-29); Chloride 100 mmol/L (96-108); Creatinine Clr Calc Pharmacy 74.6; Estimated Glomerular Filt Rate 57; Glucose Random 195 mg/dL (60-115); Phosphorus 1.8 mg/dL (2.7-4.5); Potassium 3.3 mmol/L (3.3-5.1); Sodium 134 mmol/L (135-145)
[2021-10-17] MEDS: gemfibroziL 600 MG TABLET PO ×2 (08:01→16:43)
[2021-10-17 08:02] LABS: Glucose, Whole Blood 187 mg/dL (60-115)
[2021-10-17 11:35] LABS: Glucose, Whole Blood 167 mg/dL (60-115)
[2021-10-17] MEDS: Insulin Lispro 100 UNIT/ML 3 ML VIAL SUBCUT ×3 (12:02→20:51)
--- NOTE | 2021-10-17 14:53 | MHC.CM.PN ---
Pt continues in ICU for tx of triglyceride mediated pancreatitis: lab better: pt may be transferred to Med Surg if BG remain WNL and pt continues to tolerate a diet. Pt resides with his niece who will transport and pt has access to medical care. No additional services are expected.
--- NOTE | 2021-10-17 15:29 | PM.CCPN ---
Subjective Subjective Date of Service: 10/17/21 Critical Care Time (minutes): 0 Comment: Mr. Herrmann was admitted to ICU yesterday for an insulin drip for hypertriglyceridemia-induced pancreatitis. The patient is a 36 year male with a past medical history hypertension, diabetes mellitus, solitary kidney, pancreatitis, and past alcohol abuse.? The patient has not used alcohol in the last 1.5 years, and does not take any medications. He presented ambulatory to the ED the evening of 10/15 c/o abdominal pain x 1 day.? In the ED had a mild fever and mild tachycardia.? He had mild abdominal tenderness. Labs were notable for white count of 16, hemoglobin of 18, BUN/creatinine 15/1.8, bicarb 22, gluc 279, triglycerides 3217, and lipase 82.? CT abdomen showed moderate stranding adjacent to the distal pancreas consistent with pancreatitis. The patient was vol resuscitated, started on an insulin drip, and admitted to ICU.? Trig was down to 1000 yesterday. Lipase was down to 73. This morning, he?s afebrile, HR is 100, BP 130/96.? Breathing easy w Sat 95-97% on room air.? The abdomen is nondistended.? No tenderness.? I mashed on his belly and he didn?t even wince.? No edema. LABORATORY DATA:? BUN/creat are down to 7/1.4, trig down to 439. IMPRESSION: 1. Hypertriglyceridemia.? Down to a reasonable level now.? On gemfibrozil.? We turned the insulin drip off and he?s now on sliding scale insulin.? When his pancreatitis is fully resolved, a statin should be added to his regimen. 2. Pancreatitis.? Clinically resolving.? Started on a diet.? No abx indicated. 3. DM.? On sliding scale SQ insulin. 4. MINOO.? Resolving after fluid resuscitation. Stable for transfer to med surg.? Will sign out to hospitalists. Time:? . Physical Exam Vital Signs: Vital Signs: Last Vital Signs Temp 97.8 F 10/17/21 12:00 Pulse 102 H 10/17/21 14:00 Resp 18 10/17/21 14:00 BP 130/96 H 10/17/21 14:00 Pulse Ox 95 10/17/21 14:00 Body Mass Index 28.2 Objective Data Labs CBC & Chem 7: 10/17/21 05:30 10/17/21 05:30 Labs: Laboratory Results - last 24 hr 10/16/21 10/16/21 10/16/21 16:10 18:33 20:05 WBC RBC Hgb Hct MCV MCH MCHC RDW Plt Count MPV Immature Gran % (Auto) Neut % (Auto) Lymph % (Auto) Antelope % (Auto) Eos % (Auto) Baso % (Auto) Lymph # (Auto) Antelope # (Auto) Eos # (Auto) Baso # (Auto) Abs Immat Gran (auto) Absolute Neuts (auto) Absolute Nucleated RBC Nucleated RBC % (auto) Sodium Potassium Chloride Carbon Dioxide Anion Gap BUN Creatinine Estim Creat Clear Calc Estimated GFR POC Glucose 262 H 247 H 242 H Random Glucose Calcium Phosphorus Total Bilirubin AST ALT Alkaline Phosphatase Total Protein Albumin Triglycerides 10/16/21 10/16/21 10/17/21 22:00 23:51 01:47 WBC RBC Hgb Hct MCV MCH MCHC RDW Plt Count MPV Immature Gran % (Auto) Neut % (Auto) Lymph % (Auto) Antelope % (Auto) Eos % (Auto) Baso % (Auto) Lymph # (Auto) Antelope # (Auto) Eos # (Auto) Baso # (Auto) Abs Immat Gran (auto) Absolute Neuts (auto) Absolute Nucleated RBC Nucleated RBC % (auto) Sodium Potassium Chloride Carbon Dioxide Anion Gap BUN Creatinine Estim Creat Clear Calc Estimated GFR POC Glucose 179 H 175 H 162 H Random Glucose Calcium Phosphorus Total Bilirubin AST ALT Alkaline Phosphatase Total Protein Albumin Triglycerides 10/17/21 10/17/21 10/17/21 03:51 05:30 05:30 WBC 14.2 H RBC 4.78 Hgb 14.5 Hct 41.6 L MCV 87.0 MCH 30.3 MCHC 34.9 RDW 11.7 Plt Count 118 L MPV 10.3 Immature Gran % (Auto) 0.6 H Neut % (Auto) 68.9 Lymph % (Auto) 19.1 L Antelope % (Auto) 10.1 Eos % (Auto) 1.2 Baso % (Auto) 0.1 Lymph # (Auto) 2.7 Antelope # (Auto) 1.4 H Eos # (Auto) 0.2 Baso # (Auto) 0.0 Abs Immat Gran (auto) 0.09 H Absolute Neuts (auto) 9.8 H Absolute Nucleated RBC 0.000 Nucleated RBC % (auto) 0.0 Sodium 134 L Potassium 3.3 Chloride 100 Carbon Dioxide 26 Anion Gap 11 L BUN 7 L Creatinine 1.40 Estim Creat Clear Calc 74.6 Estimated GFR 57 POC Glucose 179 H Random Glucose 195 H Calcium 8.2 L Phosphorus 1.8 L Total Bilirubin 1.8 H AST 8 ALT 13 Alkaline Phosphatase 72 Total Protein 6.0 L Albumin 3.1 L Triglycerides 10/17/21 10/17/21 10/17/21 05:30 05:58 07:57 WBC RBC Hgb Hct MCV MCH MCHC RDW Plt Count MPV Immature Gran % (Auto) Neut % (Auto) Lymph % (Auto) Antelope % (Auto) Eos % (Auto) Baso % (Auto) Lymph # (Auto) Antelope # (Auto) Eos # (Auto) Baso # (Auto) Abs Immat Gran (auto) Absolute Neuts (auto) Absolute Nucleated RBC Nucleated RBC % (auto) Sodium Potassium Chloride Carbon Dioxide Anion Gap BUN Creatinine Estim Creat Clear Calc Estimated GFR POC Glucose 208 H 187 H Random Glucose Calcium Phosphorus Total Bilirubin AST ALT Alkaline Phosphatase Total Protein Albumin Triglycerides 439 10/17/21 11:31 WBC RBC Hgb Hct MCV MCH MCHC RDW Plt Count MPV Immature Gran % (Auto) Neut % (Auto) Lymph % (Auto) Antelope % (Auto) Eos % (Auto) Baso % (Auto) Lymph # (Auto) Antelope # (Auto) Eos # (Auto) Baso # (Auto) Abs Immat Gran (auto) Absolute Neuts (auto) Absolute Nucleated RBC Nucleated RBC % (auto) Sodium Potassium Chloride Carbon Dioxide Anion Gap BUN Creatinine Estim Creat Clear Calc Estimated GFR POC Glucose 167 H Random Glucose Calcium Phosphorus Total Bilirubin AST ALT Alkaline Phosphatase Total Protein Albumin Triglycerides Quality Stroke Does the patient have a stroke diagnosis?: No VTE Prior VTE?: No VTE Risk Level:: Medical - low VTE Device Contraindication: Treatment Not Indicated VTE Drug Contraindication: N/A - Med Ordered
[2021-10-17 16:31] LABS: Glucose, Whole Blood 230 mg/dL (60-115)
[2021-10-17 20:48] LABS: Glucose, Whole Blood 213 mg/dL (60-115)
[2021-10-18 02:00] VITALS: BP 106/66; PULSE 82; RESP 15; O2SAT 94
[2021-10-18 04:00] VITALS: BP 106/68; PULSE 87; RESP 14; TEMP 36.8; O2SAT 93
[2021-10-18 05:48] LABS: Hematocrit 46.7 % (42.0-52.0); Hemoglobin 15.5 g/dl (14.0-18.0); Mean Corpuscular HGB Conc 33.2 g/dl (31.0-36.0); Mean Corpuscular Volume 90.3 fL (80.0-98.0); Mean Platelet Volume 10.5 fL (9.4-12.4); Platelet Count 141 X10*3/uL (160-400); Red Blood Count 5.17 X10*6/uL (4.60-5.80); Red Cell Distribution Width 11.8 % (11.0-16.0); White Blood Count 11.2 X10*3/uL (4.8-10.8)
[2021-10-18 05:53] VITALS: BP 102/70; PULSE 90; RESP 16; O2SAT 92
[2021-10-18 06:00] VITALS: BMI 27.1
[2021-10-18 06:10] LABS: Anion Gap 13 (12-20); Blood Urea Nitrogen 11 mg/dL (9-16); Calcium 9.2 mg/dL (8.4-10.2); Carbon Dioxide 26 mmol/L (22-29); Chloride 100 mmol/L (96-108); Estimated Glomerular Filt Rate 45; Glucose Random 204 mg/dL (60-115); Magnesium 1.9 mg/dL (1.6-2.6); Phosphorus 2.7 mg/dL (2.7-4.5); Potassium 4.1 mmol/L (3.3-5.1); Sodium 135 mmol/L (135-145)
[2021-10-18 07:28] LABS: Glucose, Whole Blood 196 mg/dL (60-115)
[2021-10-18] MEDS: gemfibroziL 600 MG TABLET PO (07:41)
[2021-10-18] MEDS: Insulin Lispro 100 UNIT/ML 3 ML VIAL SUBCUT ×2 (07:41→11:43)
[2021-10-18 08:00] VITALS: BP 120/92; PULSE 99; RESP 20; TEMP 37.1; O2SAT 95
--- NOTE | 2021-10-18 08:59 | P.DS_ITS ---
DS: Providers Provider Date of Service: 10/18/21 Date of admission: 10/16/21 02:34 Primary care physician: Kg Salgado MD Consults: 10/18/21 08:50 Consult to Nephrology Routine Consulting Provider: Surya Jesus Reason for consultation: minoo Has provider been notified: No DS: Diagnosis Discharge Diagnosis (1) Pancreatitis: Status: Acute (2) Hypertriglyceridemia: Status: Acute (3) MINOO (acute kidney injury): Status: Acute (4) Solitary kidney, congenital: Status: Inactive DS: Summary Hospital Course Hospital Course: Hospital course: Mr. Herrmann was admitted to ICU on 10/16 for an insulin drip for hypertriglyceridemia-induced pancreatitis. The patient is a 36 year male with a past medical history hypertension, diabetes mellitus, solitary kidney, pancreatitis, and past alcohol abuse.? The patient has not used alcohol in the last 1.5 years, and does not take any medications. He presented ambulatory to the ED the evening of 10/15 c/o abdominal pain x 1 day.? In the ED had a mild fever and mild tachycardia.? He had mild abdominal tenderness. Labs were notable for white count of 16, hemoglobin of 18, BUN/creatinine 15/1.8, bicarb 22, gluc 279, triglycerides 3217, and lipase 82.? CT abdomen sh owed moderate stranding adjacent to the distal pancreas consistent with pancreatitis. The patient was vol resuscitated, started on an insulin drip, and admitted to ICU.? Trig was down to 1000 yesterday. Lipase was down to 73. This morning, he?s afebrile, HR is 99, BP 120/92.? Breathing easy w Sat 95-97% on room air.? He has negligeable abdominal pain. LABORATORY DATA:? BUN/creat are down to 7/1.4, trig down to 439. IMPRESSION: ?1. Hypertriglyceridemia.?Treated with insulin drip, gemfibrozil, triglyceride is down to 419 today ?2. Pancreatitis.? Clinically resolved, tolerating regular diet ?3. DM.? On sliding scale SQ insulin., will add glipizide 2.5 bid, he says he checks sugars at home, hemoglobin A1C is 10.8 ?4. MINOO.?He has CKD3 and creatine appears to be within baseline right now, he shoud follow up with PCP and nephrology on outaptient basis Stable for transfer to med surg.? Will sign out to hospitalists. Time Spent with Patient Time attestation: Total time spent providing and/or coordinating discharge se rvices: Discharge coordination time: Greater than 30 minutes Quality: Stroke Does the patient have a stroke diagnosis?: No Physical Exam Vital Signs: Vital Signs: Last Vital Signs Temp 98.7 F 10/18/21 08:00 Pulse 99 10/18/21 08:00 Resp 20 10/18/21 08:00 BP 120/92 H 10/18/21 08:00 Pulse Ox 95 10/18/21 08:00 Body Mass Index 27.1 General: AO X 3, no acute distress Resp: CTA bilateral CVS: S1,S2,RRR GI: +BS, NT, no distention Skin: No rash Neuro: motor grossly intact Psych: appropriate affect DS: Data Data Completed and Pending Labs on day of discharge: Laboratory Results - last 24 hr 10/17/21 10/17/21 10/17/21 11:31 16:27 20:44 WBC RBC Hgb Hct MCV MCH MCHC RDW Plt Count MPV Absolute Nucleated RBC Nucleated RBC % (auto) Sodium Potassium Chloride Carbon Dioxide Anion Gap BUN Creatinine Estim Creat Clear Calc Estimated GFR POC Glucose 167 H 230 H 213 H Random Glucose Calcium Phosphorus Magnesium 10/18/21 10/18/21 10/18/21 05:16 05:16 07:22 WBC 11.2 H RBC 5.17 Hgb 15.5 Hct 46.7 MCV 90.3 MCH 30.0 MCHC 33.2 RDW 11.8 Plt Count 141 L MPV 10.5 Absolute Nucleated RBC 0.000 Nucleated RBC % (auto) 0.0 Sodium 135 Potassium 4.1 D Chloride 100 Carbon Dioxide 26 Anion Gap 13 BUN 11 D Creatinine 1.74 H Estim Creat Clear Calc 60.0 Estimated GFR 45 POC Glucose 196 H Random Glucose 204 H Calcium 9.2 D Phosphorus 2.7 Magnesium 1.9 Discharge Plan Discharge Anticipated Discharge Date/Time: 10/18/21 08:59 Patient Disposition: Home, Self-Care Discharge Diagnosis: hypertriglyceridemia, acute pancreatitis, acute on chronic kidney disease. Referrals: Po,Kg Tellez MD [Primary Care Provider] - 1 Week Discharge Medications: No Action No Known Home Meds RF: 0 Discharge Orders: Discharge Order (Routine); Ordered 10/18/21 Ordered By: Alec Lopez Diet: advance to usual diet and diabetic diet Activity on Discharge: As tolerated Stand Alone Forms: Patient Portal Discharge page Care Plan Goals: Full recovery from pancreatitis and hypertriglyceridemia Health Concerns: hypertriglyceridemia, pancreatitis, diabetes, chronic kidney disease. Plan of Treatment: Follow-up with her primary care doctor within a week, avoid fatty food, taking medication as prescribed. Check your sugars at home and merissa Assessment: as above Patient Instructions: Gemfibrozil (By mouth), Low Fat Diet (GEN)
[2021-10-18 09:25] LABS: Triglycerides 419 mg/dL
[2021-10-18 09:28] LABS: Estimated Average Glucose 263 mg/dL; Hemoglobin A1c % 10.8 %
--- NOTE | 2021-10-18 09:35 | MHC.CM.PN ---
Addendum entered by Mei Kitchen 10/18/21 16:12: Received acceptance from [facility] that they could see pt on Sunday, 10/21. Call placed to pt to inform him: provided contact number. Addendum entered by Mei Kitchen 10/18/21 13:02: Pt states his niece is knowledgable about bg testing and insulin administration but is receptive to [facility] referrals: broad referrals made - CM to contact pt with name/number of agency as pt's ride is here and he will dc to home. Pt has received teaching from nursing and verbalized understanding. Original Note: Met with pt to review d/c plans: pt states his sister will transport him to home - pt states he has all of his DM medications and testing supplies and has no barriers to following up outpt with his PCP, Dr. Braeden Batista. No additional services are anticipated at this time.
[2021-10-18] MEDS: glipiZIDE 5 MG TABLET 2.5 MG PO (09:38)
[2021-10-18 11:22] LABS: Glucose, Whole Blood 288 mg/dL (60-115)
== END 2021-10-18 13:22 | disposition home or self-care (01) | DRG 282 ==
LOC: HO.ED 10-16 01:45 → HO.EDOVER 10-16 02:44 → HO.ICU 10-16 03:39
PROVIDERS: Anesthesiology; Internal Medicine; Internal Medicine Pulmonary Disease; Admitting Provider Registered Nurse Community Health; Emergency Provider Emergency Medicine; PCP Internal Medicine; Visit Provider Internal Medicine
DX: K85.90 Acute pancreatitis without necrosis or infection, unspecified (principal); N17.9 Acute kidney failure, unspecified; Q60.0 Renal agenesis, unilateral; E11.9 Type 2 diabetes mellitus without complications; E78.1 Pure hyperglyceridemia; F10.11 Alcohol abuse, in remission; Z20.822 Contact with and (suspected) exposure to COVID-19; Z79.4 Long term (current) use of insulin; Z79.899 Other long term (current) drug therapy
CPT/HCPCS: 36415; 71045; 74177; 80048; 80053; 80076; 80307; 81001; 82077; 82947; 83036; 83690; 83735; 84100; 84478; 85025; 85027; 87635; 96361; 96374; 99285; 99291; J2270; Q9967

== ENCOUNTER 2022-03-01 09:03 | Outpatient (REF) | payer OTHER, SELFPAY ==
[2022-03-01 10:08] LABS: Hematocrit 51.2 % (42.0-52.0); Hemoglobin 17.2 g/dl (14.0-18.0); Mean Corpuscular HGB Conc 33.6 g/dl (31.0-36.0); Mean Corpuscular Volume 92.3 fL (80.0-98.0); Mean Platelet Volume 9.8 fL (9.4-12.4); Platelet Count 171 X10*3/uL (160-400); Red Blood Count 5.55 X10*6/uL (4.60-5.80); Red Cell Distribution Width 12.1 % (11.0-16.0); White Blood Count 9.1 X10*3/uL (4.8-10.8)
[2022-03-01 11:01] LABS: Creatinine Urine 109.65 mg/dL
[2022-03-01 11:02] LABS: Alanine Aminotransferase 23 U/L (0-40); Albumin Level 4.2 g/dL (3.5-5.0); Alkaline Phosphatase 75 U/L (39-117); Anion Gap 12 (12-20); Aspartate Amino Transferase 16 U/L (5-37); Bilirubin Total 0.6 mg/dL (0.0-1.0); Blood Urea Nitrogen 19 mg/dL (9-16); Calcium 9.5 mg/dL (8.4-10.2); Carbon Dioxide 28 mmol/L (22-29); Chloride 100 mmol/L (96-108); Cholesterol 212 mg/dL; Estimated Glomerular Filt Rate 41; Glucose Fasting 159 mg/dL (60-99); HDL Cholesterol 30 mg/dL; Potassium 4.7 mmol/L (3.3-5.1); Sodium 135 mmol/L (135-145); Total Protein 7.9 g/dL (6.5-8.0); Triglycerides 721 mg/dL
[2022-03-01 11:08] LABS: TSH reflex Free T4 1.15 uIU/mL (0.32-4.0)
[2022-03-01 11:25] LABS: Microalbum/Creatinine Ratio Ur 1336.9 ug/mg cr
== END 2022-03-01 09:04 | disposition home or self-care (01) ==
LOC: HO.LAB 09:03
PROVIDERS: PCP Physician Assistant; Visit Provider Physician Assistant
DX: E11.65 Type 2 diabetes mellitus with hyperglycemia (principal); E78.1 Pure hyperglyceridemia; Z79.4 Long term (current) use of insulin
CPT/HCPCS: 36415; 80053; 80061; 82043; 84443; 85027

== ENCOUNTER 2024-11-28 16:42 | Emergency (ER) | payer OTHER, SELFPAY ==
--- NOTE | ~2024-11-28 | XR_ITS ---
CLINICAL HISTORY: right sided pain 3 views lumbar spine Comparison: None Findings: Normal alignment. No acute fractures or dislocation. No significant degenerative change. IMPRESSION: No acute findings. This document has been electronically signed by: Jase Trujillo MD on 11/28/2024 18:39:25
[2024-11-28 16:57] VITALS: BP 179/99; PULSE 79; RESP 20; TEMP 37; O2SAT 100; BMI 28.2
--- NOTE | 2024-11-28 16:57 | ED.GENADULT ---
HPI - General Adult General Chief complaint: Back Pain/Injury Stated complaint: Back pain Time Seen by Provider: 11/28/24 20:20 Source: patient, RN notes reviewed and old records reviewed Mode of arrival: ambulatory Limitations: no limitations History of Present Illness ED Provider: Aroldo HPI narrative: Patient is a 39-year-old male with history of solitary congenital kidney, HTN presenting with right lower back pain, denies radiation to legs. Began after playing with nephew 2 days ago. Denies fevers, saddle anesthesia, bowel or bladder incontinence. Denies any urinary symptoms. Denies fevers. Related Data Home Medications ?Medication ?Instructions ?Recorded ?Confirmed insulin lispro 100 unit/mL 1 sliding scale dose subcut QIDACHS 03/01/22 11/15/22 subcutaneous pen (Humalog KwikPen (U-100) Insulin) Previous Rx's ?Medication ?Instructions ?Recorded blood-glucose meter (FreeStyle #1 ea 10/18/21 Lite Meter kit) pen needle, diabetic 32 gauge x #100 ea 10/18/2111/29 nicotine (polacrilex) 2 mg gum 2 mg buccal Q2H 30 days #110 ea 03/01/22 (Nicorette) alcohol swabs 1 pad topical QIDACHS #100 ea 08/23/22 blood sugar diagnostic (FreeStyle #100 ea 08/23/22 Lite Strips) lancets 28 gauge (FreeStyle #100 ea 10/30/22 Lancets) amlodipine 2.5 mg tablet 2.5 mg PO DAILY 90 days #90 tabs 11/15/22 nicotine 14 mg/24 hr daily 1 patch transdermal DAILY 14 days 11/15/22 transdermal patch #14 ea cyclobenzaprine 10 mg tablet 10 mg PO TID PRN muscle spasm #10 11/28/24 tabs lidocaine 5 % topical patch 1 patch topical DAILY #15 ea 11/28/24 Allergies Allergy/AdvReac Type Severity Reaction Status Date / Time lisinopril Allergy Unknown Hyperkalemi Verified 11/28/24 17:00 a [facility] Past Medical History Medical History MINOO (acute kidney injury) Diabetes Hypertension Pancreatitis Solitary kidney, congenital Surgical History No pertinent past surgical history Family History Family History Mother No problems noted. Father No problems noted. Social History Social History Housing: Apartment Alcohol intake: current Alcohol intake frequency: a few times a month Alcohol type: beer Patient Tobacco Use Status: Current everyday Tobacco user Tobacco use type: Cigarette Cigarettes Per Day: 3 e-Cigarette/Vaping Use: Never Used Second Hand Smoke Exposure: No Do you have a plan to hurt others: No Plan service: No Current occupational status: unemployed Cognitive needs: No Hearing needs: No Vision needs: No Physical Exam ED Vital Signs: Vital Signs - 24 hr 11/28/24 16:57 11/28/24 20:19 Temperature 98.6 F 98.8 F Pulse Rate 79 66 Respiratory Rate 20 17 Blood Pressure 179/99 H 155/95 H Pulse Oximetry 100 99 Oxygen Delivery Method Room Air Room Air BMI result Body Mass Index 28.2 Course Course Course Narrative: This is a rapid medical exam performed by Anitha Kendrick NP: Additional HPI, ROS, PE not included below will be deferred to primary provider. Patient is a 39-year-old male presenting with right lower back pain, denies radiation to legs. Began after playing with nephew 2 days ago. Denies fevers, saddle anesthesia, bowel or bladder incontinence. Plan: xray Discharge Plan Discharge Clinical Impression: Lumbar strain Patient Disposition: Home, Self-Care Instructions: Low Back Strain (ED) Additional Instructions: You were evaluated in the emergency department today for back pain. Your evaluation did not show signs of medical conditions requiring emergent intervention at this time. We recommended that you use ibuprofen or Tylenol per package directions every 6 hours as needed for pain. If necessary, you can alternate these medications so that you take one medication every 3 hours. For instance, at noon take ibuprofen, then at 3:00 p.m. take Tylenol, then at 6:00 p.m. take ibuprofen. You have been prescribed a muscle relaxer which you may take every 8 hours as needed for spasms. You have been prescribed 5% topical lidocaine patches which you can wear for up to 12 hours in a 24 hour period. Do not apply heat directly over the patches. Please schedule an appointment for follow-up with your primary care physician this week for further evaluation of your symptoms. Return to the emergency department if you experience worsening back pain, difficulty walking, fevers, numbness, tingling, incontinence, groin numbness or tingling, or any other concerning symptoms. Prescriptions: New cyclobenzaprine 10 mg tablet 10 mg PO TID PRN (Reason: muscle spasm) Qty: 10 0RF lidocaine 5 % adhesive patch,medicated 1 patch topical DAILY Qty: 15 0RF Rx Instructions: leave on most painful area for up to 12 hrs No Action alcohol swabs Pads, Medicated 1 pad TOPICAL QIDACHS Qty: 100 3RF Rx Instructions: Use four times a day or as directed. (DME) FreeStyle Lite Strips Strip Qty: 100 3RF Rx Instructions: Test four times a day or as directed. (DME) lancets [FreeStyle Lancets] 28 gauge misc Qty: 100 0RF Rx Instructions: Test four times a day or as directed. (DME) blood-glucose meter [FreeStyle Lite Meter] Kit Qty: 1 0RF Rx Instructions: As Directed, 4 times a day (DME) pen needle, diabetic 32 gauge x 1/4 Needle Qty: 100 0RF Rx Instructions: Use four times a day or as directed. nicotine 14 mg/24 hr patch 24 hour 1 patch transdermal DAILY 14 Days Qty: 14 0RF amlodipine 2.5 mg tablet 2.5 mg PO DAILY 90 Days Qty: 90 1RF insulin lispro [Humalog KwikPen Insulin] 100 unit/mL insulin pen 1 sliding scale dose SUBCUT QIDACHS Rx Instructions: Blood Sugar: <150 - 0 units 151-200 - 2 units 201-250 - 4 units 251-300 - 6 units 301-350 - 8 units >350 - 10 units nicotine (polacrilex) [Nicorette] 2 mg gum 2 mg buccal Q2H 30 Days Qty: 110 1RF Print Language: Tamazight
[2024-11-28 20:19] VITALS: BP 155/95; PULSE 66; RESP 17; TEMP 37.1; O2SAT 99
== END 2024-11-28 20:31 | disposition home or self-care (01) ==
LOC: HO.ED 20:26
PROVIDERS: Emergency Provider Emergency Medicine; PCP Physician Assistant
DX: S39.012A Strain of muscle, fascia and tendon of lower back, initial encounter (principal); X50.9XXA Other and unspecified overexertion or strenuous movements or postures, initial encounter; M54.50 Low back pain, unspecified; E11.9 Type 2 diabetes mellitus without complications; I10 Essential (primary) hypertension; Z90.5 Acquired absence of kidney; Q89.8 Other specified congenital malformations; F17.210 Nicotine dependence, cigarettes, uncomplicated; Y93.89 Activity, other specified; Y92.9 Unspecified place or not applicable; Y99.9 Unspecified external cause status
CPT/HCPCS: 72100; 99281; 99283

== ENCOUNTER → 2024-11-28 16:59 | Outpatient (BNV) | payer OTHER, SELFPAY | PROVIDERS: PCP Physician Assistant; Visit Provider Specialist | DX: M54.50 Low back pain, unspecified (principal) | CPT/HCPCS: 72100 ==

== ENCOUNTER 2025-07-09 03:49 | Emergency (ER) | payer SELFPAY ==
[2025-07-09 03:57] VITALS: BP 166/100; PULSE 106; O2SAT 97
[2025-07-09 04:03] VITALS: BMI 20.4
[2025-07-09 04:23] VITALS: BP 160/93; PULSE 102; RESP 17; TEMP 36.3; O2SAT 93
--- NOTE | 2025-07-09 04:24 | ED.OVERDOSE ---
HPI - Overdose General Chief Complaint: Overdose Stated Complaint: OD , Narcan given Time Seen by Provider: 07/09/25 04:15 Source: patient and EMS Mode of arrival: EMS Limitations: no limitations History of Present Illness ED Provider: Dr. Marley Roberts HPI Narrative: Patient comes to the emergency room via ambulance. Seems that patient accidentally overdose using crack cocaine probably lays with narcotics. Patient states that this was an accidental overdose. Patient denies any trauma. Patient states that other than feeling a bit nauseous, he feels fairly well. After patient got administer Narcan, he woke up and has been awake and alert since then. Denies SI or HI Related Data Home Medications ?Medication ?Instructions ?Recorded ?Confirmed insulin lispro 100 unit/mL 1 sliding scale dose subcut QIDACHS 03/01/22 11/15/22 subcutaneous pen (Humalog KwikPen (U-100) Insulin) Previous Rx's ?Medication ?Instructions ?Recorded blood-glucose meter (FreeStyle #1 ea 10/18/21 Lite Meter kit) pen needle, diabetic 32 gauge x #100 ea 10/18/2111/29 nicotine (polacrilex) 2 mg gum 2 mg buccal Q2H 30 days #110 ea 03/01/22 (Nicorette) alcohol swabs 1 pad topical QIDACHS #100 ea 08/23/22 blood sugar diagnostic (FreeStyle #100 ea 08/23/22 Lite Strips) lancets 28 gauge (FreeStyle #100 ea 10/30/22 Lancets) amlodipine 2.5 mg tablet 2.5 mg PO DAILY 90 days #90 tabs 11/15/22 nicotine 14 mg/24 hr daily 1 patch transdermal DAILY 14 days 11/15/22 transdermal patch #14 ea cyclobenzaprine 10 mg tablet 10 mg PO TID PRN muscle spasm #10 11/28/24 tabs lidocaine 5 % topical patch 1 patch topical DAILY #15 ea 11/28/24 Allergies Allergy/AdvReac Type Severity Reaction Status Date / Time lisinopril Allergy Unknown Hyperkalemi Verified 07/09/25 04:04 a Review of Systems Review of Systems: Constitutional : No Weight loss, No Fever, No Chills, No Night Sweats, No Fatigue, No Malaise ENT/Mouth : No Hearing loss, No Ear Pain, No Nasal Congestion, No Sinus Pain, No Hoarseness, No sore throat, No Rhinorrhea, No Swallowing Difficulty Eyes: No Eye Pain, No Swelling, No Redness, No Foreign Body, No Discharge, No Vision Changes Cardiovascular : No Chest Pain, No SOB, No Dyspnea on Exertion, No Orthopnea, No Edema, No Palpitations Respiratory : No Cough, No Sputum, No Wheezing, No Smoke Exposure, No Dyspnea Gastrointestinal : No Nausea, No Vomiting, No Diarrhea, No Constipation, No abdominal Pain, No Hematochezia, No Melena Genitourinary : no irregular bleeding, No Dysuria, No Urinary Frequency, No Hematuria, No Urinary Incontinence, No Urgency, No Flank Pain, No Urinary Flow Changes, No Hesitancy Musculoskeletal : No joint pain, No Myalgias, No Joint Swelling Skin : No Skin Lesions, No rash Neuro : No Weakness, No Numbness, No Paresthesias, No Loss of Consciousness, No Dizziness, No Headache Psych : No Anxiety/Panic, No Depression, No SI/HI/AH/VH, admits to accidental overdose with smoked crack cocaine laced with narcotics Heme/Lymph: No Bruising, No Bleeding,No Lymphadenopathy Endocrine : No Polyuria, No Polydipsia, No Temperature Intolerance PMFSH Past Medical History Medical History Solitary kidney, congenital Hypertension MINOO (acute kidney injury) Pancreatitis Diabetes Surgical History No pertinent past surgical history Family History Family History Mother No problems noted. Father No problems noted. Social History Social History Housing: Apartment Alcohol intake: current Alcohol intake frequency: a few times a month Alcohol type: beer Patient Tobacco Use Status: Current everyday Tobacco user Tobacco use type: Cigarette Cigarettes Per Day: 3 Smoked in Last 30 Days: Yes e-Cigarette/Vaping Use: Never Used Second Hand Smoke Exposure: No Use of substances other than those prescribed or required for medical reasons: Yes Substance Use Type: Crack/Cocaine and Marijuana Advance Directives: Yes Advance Directives on File: Yes Advance Directives Date on File: 08/31/22 Do you have a plan to hurt others: No Plan service: No Current occupational status: unemployed Cognitive needs: No Hearing needs: No Vision needs: No Physical Exam Exam: Exam: Appearance: Alert. Oriented X3. No acute distress. Eyes: Pupils equal, round and reactive to light. ENT: Pharynx normal. Neck: Normal inspection. Neck supple. No lymph nodes noted. No crepitus CVS: Normal heart rate and rhythm. Pulses normal. Normal S1 and S2 Respiratory: No respiratory distress. Breath sounds normal. No Wheezing. No rales Abdomen: Soft and nontender. No rigidity. No distention. Skin: Skin warm and dry. Normal skin color. Normal skin turgor. Extremities: No lower extremity edema. No Lacerations. No Rash Neuro: Oriented X 3. No motor deficit. No sensory deficit. Moving all extremities. No slurred speech. CN 2 through 12 grossly intact Psych: calm, cooperative, normal affect Vital Signs: Vital Signs: Last Vital Signs Temp 97.2 F 07/09/25 05:49 Pulse 99 07/09/25 05:49 Resp 16 07/09/25 05:49 BP 141/95 H 07/09/25 05:49 Pulse Ox 95 07/09/25 05:49 O2 Del Method Room Air 07/09/25 05:49 BMI result Body Mass Index 20.4 Course Course Course Narrative: Patient admits to accidental overdose, states he wanted to get high with crack cocaine but probably was laced with narcotics Patient received 8 mg of intranasal Narcan, patient awake, alert, coherent, denies SI or HI Patient's oxygen saturation in the mid 90s on room air Medical Decision Making Medical Decision Making [facility] Narrative: Patient admits to accidental overdose. 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 Patient agrees with plan. Physician observation started at 04:24 At this time, 08:50, patient is awake, alert, states that he feels well. No oxygen desaturations. Patient will be provided With home Narcan patient again denied SI or HI and declined sude eval Vitals stable Patient is ready for discharge Differential Diagnosis Differential Diagnoses: The differential diagnosis associated with the presentation includes (Accidental overdose, alcohol abuse, polysubstance abuse) Admission/Observation Consideration of admission/observation: Escalation of care including admission/observation considered (Patient will be under a physician observation for a few hours until safe to be discharged home) Critical Care Time Critical Care Time Critical Care Time: Yes Total Critical Care Time: 35 Attestation: I have personally provided critical care time. Time includes review of lab data, radiology results, discussion with consultants, and monitoring for potential decompensation. Intervention performed as documented. Discharge Plan Discharge Clinical Impression: Drug overdose Patient Disposition: Home, Self-Care Instructions: Adult Overdose (ED) Additional Instructions: Overdose You were seen in our Emergency Department for an overdose today. You received narcan in order to reverse the effects of overdose. Narcan only lasts about 45 min to 1 hour in the system. You may have been given narcan to take home with you today, please keep it near you if you are going to use again, so others can use it if needed.? The number one risk for fatal overdose is using alone? [facility] is a / hotline where you can be on the phone with someone while you use, and they can call for help if they suspect an overdose: [phone] Things to look out for when you leave include severe vomiting or diarrhea, headaches, muscle cramps, fever, coughing, chest pain, or if you feel so short of breath you cannot walk to the bathroom. Please seek care and return any time for worsening symptoms.? You may have been provided with safer injection?items, please take time to take care of YOU and your health. Use new supplies whenever possible to lessen the chances of infections and other illnesses.? If you need more supplies, please go [facility],? [address] [place] [address] OR you can call or text to coordinate delivery of safer supplies. If you decide you want to stop or cut down on how much you?re using, please call the numbers on the list provided to you or you can come to our outpatient Addiction Treatment office [facility] (M-F 9am-5p) [address], [address] [place], [place]. [phone] Prescriptions: No Action alcohol swabs Pads, Medicated 1 pad TOPICAL QIDACHS Qty: 100 3RF Rx Instructions: Use four times a day or as directed. (DME) FreeStyle Lite Strips Strip Qty: 100 3RF Rx Instructions: Test four times a day or as directed. (DME) lancets [FreeStyle Lancets] 28 gauge misc Qty: 100 0RF Rx Instructions: Test four times a day or as directed. (DME) blood-glucose meter [FreeStyle Lite Meter] Kit Qty: 1 0RF Rx Instructions: As Directed, 4 times a day (DME) pen needle, diabetic 32 gauge x 1/4 Needle Qty: 100 0RF Rx Instructions: Use four times a day or as directed. cyclobenzaprine 10 mg tablet 10 mg PO TID PRN (Reason: muscle spasm) Qty: 10 0RF lidocaine 5 % adhesive patch,medicated 1 patch topical DAILY Qty: 15 0RF Rx Instructions: leave on most painful area for up to 12 hrs nicotine 14 mg/24 hr patch 24 hour 1 patch transdermal DAILY 14 Days Qty: 14 0RF amlodipine 2.5 mg tablet 2.5 mg PO DAILY 90 Days Qty: 90 1RF insulin lispro [Humalog KwikPen Insulin] 100 unit/mL insulin pen 1 sliding scale dose SUBCUT QIDACHS Rx Instructions: Blood Sugar: <150 - 0 units 151-200 - 2 units 201-250 - 4 units 251-300 - 6 units 301-350 - 8 units >350 - 10 units nicotine (polacrilex) [Nicorette] 2 mg gum 2 mg buccal Q2H 30 Days Qty: 110 1RF Print Language: Thai
[2025-07-09 05:49] VITALS: BP 141/95; PULSE 99; RESP 16; TEMP 36.2; O2SAT 95
[2025-07-09 10:00] VITALS: BP 114/69; PULSE 82; RESP 16; TEMP 36.9; O2SAT 98
== END 2025-07-09 08:56 | disposition home or self-care (01) ==
PROVIDERS: Emergency Provider Emergency Medicine
DX: T65.91XA Toxic effect of unspecified substance, accidental (unintentional), initial encounter (principal); Y92.9 Unspecified place or not applicable; I10 Essential (primary) hypertension; E11.9 Type 2 diabetes mellitus without complications; Z79.4 Long term (current) use of insulin
CPT/HCPCS: 99284